=== PATIENT | female | born 1940 | race Caucasian/White ===

== ENCOUNTER → 2017-07-15 | Outpatient (CLI) | payer OTHER, MEDICARE ==
[~2017-07-15] MED LIST: ALBUTEROL2.5 MG/0.1 INH; ALEVE220 MG PO; AMBIEN 10 MG TA10 MG PO; APHEN325 MG PO; ATORVASTATIN CA20 MG PO; COUMADIN 4 MG TA4 M1 PO; COUMADIN 5 MG TA5 M1 PO; DILTIAZEM 24HR240 MG PO; DIOVAN HCT 1601 EACH PO; FLECAINIDE ACET50 M1 PO; FLECAINIDE ACET50 M2 PO; JANTOVEN7.5 MG PO; K-DUR 20 MEQ T20 MEQ PO; LASIX 40 MG TAB40 M2 PO; LEVAQUIN 500 M500 M2 PO; LEVOXYL50 MCG PO; LOPRESSOR100 MG PO; MEDROLDOSEPACK PO; MULTIVITAMINS1 EAC7 PO; NEXIUM40 MG PO; PACERONE 200 M200 M1 PO; PROTONIX40 M2; PROTONIX40 M2 PO; SOTALOL120 MG PO; TYLENOL325 MG PO; VITAMIN D-32000 UNIT PO; XARELTO20 MG PO
== END ==
LOC: RAD 03:43
DX: Z12.31 Encounter for screening mammogram for malignant neoplasm of breast (principal)

== ENCOUNTER → 2019-07-19 | Outpatient (CLI) | payer OTHER, MEDICARE | LOC: RAD 01:34 | DX: Z12.31 Encounter for screening mammogram for malignant neoplasm of breast (principal) ==

== ENCOUNTER 2019-08-27 13:29 | Inpatient (IN) | payer OTHER, MEDICARE ==
[~2019-08-27] VITALS: Ht 172.7 cm; Wt 120.7 kg
[2019-08-27 13:32] VITALS: BP 198/133
[2019-08-27 14:19] LABS: ABSOLUTE NEUTROPHILS 6.7 thou/uL (1.4-8.2); BASOPHILS 0.5 % (0.0-2.0); EOSINOPHILS 0.1 % (0.0-3.0); HEMATOCRIT 43.1 % (37.0-47.0); HEMOGLOBIN 14.1 gm/dL (12.0-15.0); MCH 29.9 pg (26.0-34.0); MCHC 32.6 g/dL (28.0-37.0); MCV 91.8 fL (80.0-100.0); MONOCYTES 6.2 % (1.0-8.0); PLATELET COUNT 175 thou/uL (150-400); POLYS 82.2 % (36.0-66.0); WBC 8.2 thou/uL (4.0-11.0)
[2019-08-27 14:30] LABS: ANION GAP 5 mmol/L (7-16); BUN 17 mg/dL (7-18); CALCIUM 8.9 mg/dL (8.5-10.1); CHLORIDE 102 mmol/L (98-107); CO2 30 mmol/L (21-32); GLUCOSE 166 mg/dL (74-106); PROTIME 21.3 Seconds (9.3-11.4); SODIUM 137 mmol/L (136-145)
[2019-08-27 14:40] LABS: ALBUMIN 2.5 g/dL (3.4-5.0); MAGNESIUM 1.8 mg/dL (1.8-2.4); SGOT 17 U/L (15-37); SGPT 17 U/L (30-65); TOTAL BILIRUBIN 1.5 mg/dL (<0.1-1.0); TOTAL PROTEIN 5.8 g/dL (6.4-8.2); TROPONIN-I <0.06 ng/mL (<0.06)
[2019-08-27] MEDS ORDERED: COUMADIN 2 MG TA2 M1 PO (14:58)
[2019-08-27] MEDS ORDERED: COUMADIN 4 MG TA4 M1 PO (14:59)
[2019-08-27] MEDS ORDERED: HYDROCHLOROTHIA25 M2 PO (15:00)
[2019-08-27] MEDS ORDERED: VITAMIN D2000 UNIT PO (15:01)
[2019-08-27 15:17] VITALS: BP 131/99
[2019-08-27 15:37] VITALS: BP 150/107
--- NOTE | 2019-08-27 18:14 | NUR ---
ASSUMMED PT CARE AT APPROXIMATELY 1600. PT A&O X4. ASSESSMENT CHARTED. FALL PRECAUTIONS IN PLACE. PT DENIES HAVING CHEST PAIN. PT STATES SHE HAS SOB ON EXERSION. PT DENIES HAVING ACUTE PAIN. ADMISSION COMPLETE. PT EDUCATED ON POC. PT STATED UNDERSTANDING AND DENIED HAVING FURTHER QUESTIONS. PT UP TO CHAIR THROUGHOUT SHIFT. PT COMFORTABLE IN CHAIR. PT DENIES HAVING FURTHER CONCERNS AT THIS MOMENT. VITAL SIGNS STABLE. BLOOD SUGARS STABLE.
[2019-08-27 19:46] VITALS: BP 140/75
[2019-08-27] MEDS ORDERED: ATENOLOL 100MG100 MG PO (21:01)
[2019-08-28 00:43] VITALS: BP 154/106
[2019-08-28 04:41] VITALS: BP 156/110
[2019-08-28 04:54] LABS: CREATININE 0.9 mg/dL (0.6-1.0); POTASSIUM 4.1 mmol/L (3.5-5.1)
[2019-08-28 05:36] LABS: CALCIUM 8.5 mg/dL (8.5-10.1)
[2019-08-28 05:41] LABS: HEMATOCRIT 42.3 % (37.0-47.0); HEMOGLOBIN 13.8 gm/dL (12.0-15.0); MCHC 32.6 g/dL (28.0-37.0); RBC 4.59 mil/uL (4.20-5.00); RDW 15.4 % (10.5-14.5); WBC 6.4 thou/uL (4.0-11.0)
[2019-08-28 07:56] VITALS: BP 151/102
--- NOTE | 2019-08-28 08:12 | NUR ---
ASSESSMENTS CHARTED, MEDS GIVEN CHARTED. PATIENT RESTING IN RECLINER DURING SHIFT. UP TO BATHROOM WITH MINIMAL ASSIST TO HELP WITH IV POLE. PATIENT USES TWO WALKING POLES TO HELP HER AMBULATE. CHEST XRAY SHOWS PNEUMONIA AND SMALL LEFT PE WITH CONSOLIDATION, LEFT LOWER LOBE OPACITIES. CHRONIC SORE THROAT. HOME MEDS WERE REVIEWED AGAIN AND PATIENT REQUESTED HER ATENOLOL, VIT. D, PROTONIX AND HCTZ BE RESTARTED. RECEIVED ORDERS FROM Percy JENKINS NP. FALL PRECAUTIONS IN PLACE. DENIES PAIN.
--- NOTE | 2019-08-28 11:40 | EKG ---
[address] [address] ELECTROCARDIOGRAM REPORT Name: SUZETTERUTH Cyndi Room #: 212-P ADM IN .R.#: [id number] Admission: 08/27/19 Attend Phys: Martinez Ghosh MD Discharge: Date of : 40 Report #: [id number] THIS REPORT FOR: //name// [facility] ED Test Date: 2019-08-27 Test Time: 13:43:58 Pat Name: RUTH BRADFORD Department: Room: [facility] Gender: F Smoke Tester: KELSEA : 1940 Requested By: Chet Cobian Order Number: [id number] MD: Gino Reyes Measurements Intervals [place] Rate: 120 P: [place]: QRS: 76 QRSD: 94 T: 30 QT: 335 QTc: 474 Interpretive Statements Atrial fibrillation Ventricular premature complex Compared to ECG 02/23/2014 09:24:36 Ventricular premature complex(es) now present Left ventricular hypertrophy no longer present Myocardial infarct finding no longer present Electronically Signed On 08-28-2019 11:40:02 CDT by Gino Reyes [email or web address] <ELECTRONICALLY SIGNED> By: Gino Reyes MD 08/28/19 1140 134 42 Gino Reyes MD /EPI
[2019-08-28 12:05] VITALS: BP 125/82
[2019-08-28 16:18] VITALS: BP 123/74
--- NOTE | 2019-08-28 18:01 | NUR ---
PATIENT DOES NOT SEEM TO BE IN PAIN OR DISTRESS AT THIS TIME. AMBULATES TO BATHROOM WITH MINIMAL DIFFICULTY. CONT ON STERIODS AND ABT. NO ADVERSE REACTIONS NOTED. WILL CONT WITH PLAN OF CARE.
[2019-08-28 21:04] VITALS: BP 138/88
[2019-08-29 05:01] LABS: HEMATOCRIT 41.1 % (37.0-47.0); MCH 29.5 pg (26.0-34.0); MCHC 31.7 g/dL (28.0-37.0); MCV 92.9 fL (80.0-100.0); RBC 4.42 mil/uL (4.20-5.00); RDW 15.6 % (10.5-14.5); WBC 10.4 thou/uL (4.0-11.0)
[2019-08-29 05:02] VITALS: BP 146/92
[2019-08-29 05:12] LABS: CALCIUM 8.9 mg/dL (8.5-10.1); CREATININE 1.1 mg/dL (0.6-1.0); POTASSIUM 4.4 mmol/L (3.5-5.1)
--- NOTE | 2019-08-29 06:34 | NUR ---
ASSESSMENTS CHARTED, MEDS GIVEN CHARTED. RUTH RESTED IN CHAIR DURING SHIFT. UP AT PRISCILLA TO BATHROOM. NOT COUGHING MUCH TONIGHT YESTERDAY. NOT SHORT OF BREATH BEFORE. CONTINUING STEROID TREATMENT AND BREATHING TREATMENTS.
--- NOTE | 2019-08-29 07:54 | HC ---
[facility] [place] [address] CONSULTATION Name: RUTH BRADFORD Room #: 212-P [facility] IN ..#: [id number] Admission: 08/27/19 Attend Phys: Martinez Ghosh MD Discharge: Date of : 40 Report #: [id number] THIS REPORT FOR: //name// CC: FAM unknown Martinez Ghosh DATE OF SERVICE: 08/27/2019 CARDIOLOGY CONSULT INDICATION: Shortness of breath. HISTORY OF PRESENT ILLNESS: This is a pleasant 79-year-old female with a history of permanent atrial fibrillation, hypertension, DVT/PE, presenting with several days of cough and dyspnea. She denies any episodes of chest pains, fever, nausea, PND or orthopnea. In the ER, she was noted to have abnormal chest x-ray suggestive for left lower lobe pneumonia. She follows with Dr. Kumar for chronic atrial fibrillation. PAST MEDICAL HISTORY: Atrial fibrillation, previously on antiarrhythmic therapy, unsuccessful. A strategy of rate control and anticoagulation therapy has been instituted. Prior history of DVT/PE. History of hypertension, hyperlipidemia, obesity, osteoarthritis. ALLERGIES: CODEINE. MEDICATIONS: At home include atenolol 100 mg daily, Lipitor 20 mg daily, Nexium daily, hydrochlorothiazide, levothyroxine, Diovan/HCT 160, and warfarin as directed. SOCIAL HISTORY: Denies tobacco use. FAMILY HISTORY: Negative for premature CAD. REVIEW OF SYSTEMS: A full 10-point review of systems performed. Only the pertinent positives and negatives are described in the HPI. PHYSICAL EXAMINATION: VITAL SIGNS: Blood pressure is 150/100, heart rate is 120 beats per minute. GENERAL APPEARANCE: An overweight female, in no acute distress. HEENT: Normocephalic, atraumatic. Oral mucosa moist. NECK: Supple. LUNGS: Crackles at the left lower base. CARDIAC: Tachycardic. S1, S2 positive. ABDOMEN: Protuberant, soft. EXTREMITIES: No cyanosis, trace edema. [facility] [address] [place] [address] CONSULTATION Name: RUTH BRADFORD Room #: 212-P [facility] IN [facility]#: [id number] Admission: 08/27/19 Attend Phys: Martinez Ghosh MD Discharge: Date of : 40 Report #: [id number] ECG reveals atrial fibrillation at a heart rate of 120 beats per minute. LABORATORY VALUES: White count is 8.2, hemoglobin 14.1, platelet count 175,000. INR is 2.0. Creatinine is 1.0. Troponin is negative. Chest x-ray reveals possible left lower lobe pneumonia. ASSESSMENT AND PLAN: 1. Atrial fibrillation with rapid rate, attributed to pneumonia. Continue with atenolol and warfarin. 2. Shortness of breath/cough, continue treatment with antibiotics. Check cultures. 3. Hypertension, continue with medications including atenolol and ARB medication. 4. Pulmonary embolism/deep venous thrombosis, continue warfarin. <ELECTRONICALLY SIGNED> By: Gino Reyes MD 08/29/19 0754 [id number] Gino Reyes MD /ino
[2019-08-29 08:00] VITALS: BP 144/98
--- NOTE | 2019-08-29 09:59 | NUR ---
ORDERS RECEIVED FOR EVAL AND TREAT. SPOKE WITH Pt WHO STATES SHE DOES NOT FEEL OFF BALANCE OR WEAK AND HAS BEEN GETTING UP ON HER OWN WITHOUT DIFFICULTY. Pt DECLINING FORMAL P.T. EVAL. ACCORDING TO NURSING NOTES Pt IS UP AD PRISCILLA.
--- NOTE | 2019-08-29 11:43 | NUR ---
ORDERS RECEIVED AND APPRECIATED. PATIENT REPORTED NO CONCERNS RELATED TO ADLS OR FUNCTIONAL MOBILITY/TRANSFERS FOR SAFE RETURN HOME. PATIENT REPORTED SHE HAS EQUIPMENT IN PLACE AT HOME THAT ALLOWS FOR INDEPENDENCE WITH BATHING. PATIENT POLITELY REFUSED FORMAL OT EVALUATION. OT ENCOURAGED PATIENT TO CONTINUE TO COMPLETE SELF-CARE TASKS DURING ACUTE STAY. PER RN, PATIENT IS UP AD PRISCILLA. OT SERVICES WILL BE DISCONTINUED AT THIS TIME. PLEASE RE-CONSULT IF PATIENT HAS A DECLINE IN FUNCTIONAL STATUS.
--- NOTE | 2019-08-29 14:06 | NUR ---
ASSUMED CARE AT 0700, SHIFT ASSEESSMENT DONE, MEDS GIVEN, VSS. DENIES ANY NAUSEA, VOMITING, PAIN. ON 2L NC, PER DR BOWLING TRYING TO WEAN PT OFF OF O2. RECEIVED ONE TIME ORDER OF LASIX. DECLINED PHYSICAL THERAPHY, WORKED WITH OCCUPATIONAL THERAPHY. WILL CONTINUE TO ASSESS AND ASSIST WITH ADLs NEEDED.
[2019-08-29 16:51] VITALS: BP 137/89
[2019-08-29 20:07] VITALS: BP 118/65
[2019-08-30 04:04] VITALS: BP 150/85
--- NOTE | 2019-08-30 04:14 | NUR ---
ASSESSMENTS CHARTED, MEDS GIVEN CHARTED. PATIENT RESTING EASY IN RECLINER DURING SHIFT. UP AT PRISCILLA TO THE BATHROOM. HAS MAINTAINED HER OXYGEN LEVEL WITHOUT SUPPLEMENTAL OXYGEN DURING SHIFT. COUGH IS BECOMING PRODUCTIVE. RECEIVED LASIX THERAPY DURING DAY. STILL ON STEROID THERAPY FOR LUNGS. DENIES PAIN. PATIENT HOPES TO GO HOME IN THE MORNING.
--- NOTE | 2019-08-30 05:50 | NUR ---
PATIENTS RESPIRATORY RATE RAISED ABOVE 24 BPM SO A DOSE OF MORPHINE WAS GIVEN FOR AIR HUNGER.
[2019-08-30 06:04] LABS: HEMATOCRIT 39.1 % (37.0-47.0); HEMOGLOBIN 12.7 gm/dL (12.0-15.0); MCHC 32.5 g/dL (28.0-37.0); MCV 92.2 fL (80.0-100.0); RBC 4.24 mil/uL (4.20-5.00); RDW 15.3 % (10.5-14.5); WBC 9.4 thou/uL (4.0-11.0)
[2019-08-30 06:13] LABS: INR 2.9; PROTIME 30.2 Seconds (9.3-11.4)
[2019-08-30 06:22] LABS: CALCIUM 8.6 mg/dL (8.5-10.1); CREATININE 1.1 mg/dL (0.6-1.0); POTASSIUM 3.8 mmol/L (3.5-5.1)
[2019-08-30 08:35] VITALS: BP 151/86
[2019-08-30 12:25] VITALS: BP 121/78
[2019-08-30 16:00] VITALS: BP 141/99
--- NOTE | 2019-08-30 17:22 | NUR ---
Met with patient who resides at home with spouse. He does not drive. patient retired teacher. She reports independent with adls. She reports will have no needs at vt. SHe states her car is in our parking lot and she is driving home at vt. PCP Dr Thurston. no needs noted.
--- NOTE | 2019-08-30 19:57 | NUR ---
ASSUMED CARE AT SHIFT CHANGE, ASSESMENT CHARTED, AFEBRILE, AND BP SLIGHTLY ELEVATED. MEDS GIVEN DOCUMENTED. PROGRESSING TOWARD GOALS AND WILL CONTINUE WITH POC.
[2019-08-30 20:48] VITALS: BP 97/77
--- NOTE | 2019-08-31 02:48 | NUR ---
ASSESSMENTS CHARTED, MEDS GIVEN CHARTED. PT UP AT PRISCILLA IN ROOM. ON CHRONIC AFIB. ON ROOM AIR. PLAN OF CARE TO CONTINUE ANTIBIOTICS, STEROIDS, RT, AND DIURESING. PATIENT MANY BE ABLE TO GO HOME TODAY. FALL PRECAUTIONS IN PLACE. DENIED PAIN.
[2019-08-31 04:55] VITALS: BP 131/80
[2019-08-31 05:19] LABS: HEMATOCRIT 39.4 % (37.0-47.0); HEMOGLOBIN 12.6 gm/dL (12.0-15.0); MCH 29.5 pg (26.0-34.0); MCV 92.1 fL (80.0-100.0); RBC 4.27 mil/uL (4.20-5.00); RDW 14.9 % (10.5-14.5); WBC 6.9 thou/uL (4.0-11.0)
[2019-08-31 05:26] LABS: INR 2.9
[2019-08-31 05:33] LABS: CALCIUM 8.4 mg/dL (8.5-10.1); CREATININE 1.2 mg/dL (0.6-1.0)
[2019-08-31 07:41] VITALS: BP 150/92
[2019-08-31] MEDS ORDERED: CEFDINIR300 MG PO (09:17)
[2019-08-31] MEDS ORDERED: PREDNISONE 10 M10 M1 PO (09:19)
[2019-08-31 10:40] VITALS: BP 150/92
[2019-08-31 11:57] VITALS: BP 142/80
[2019-08-31 12:24] VITALS: BP 150/92
[2019-08-31 14:35] VITALS: BP 150/92
== END 2019-08-31 13:30 | disposition home or self-care (01) | DRG 193 ==
LOC: ER 13:29 → EROBS 15:03 → 2N 15:03 → ENTRNSPT 08-31 12:51 → EDTRNSPTSTS 08-31 12:54 → 2N 08-31 13:30
PROVIDERS: Emergency Medicine; Internal Medicine; ADMIT Hospitalist
DX: J18.9 Pneumonia, unspecified organism (principal); J96.01 Acute respiratory failure with hypoxia; J44.1 Chronic obstructive pulmonary disease with (acute) exacerbation; Z68.41 Body mass index [BMI] 40.0-44.9, adult; J44.0 Chronic obstructive pulmonary disease with (acute) lower respiratory infection; D68.59 Other primary thrombophilia; E46 Unspecified protein-calorie malnutrition; I50.32 Chronic diastolic (congestive) heart failure; T38.0X5A Adverse effect of glucocorticoids and synthetic analogues, initial encounter; I11.0 Hypertensive heart disease with heart failure; I48.91 Unspecified atrial fibrillation; E03.9 Hypothyroidism, unspecified; E66.9 Obesity, unspecified; K21.9 Gastro-esophageal reflux disease without esophagitis; M17.0 Bilateral primary osteoarthritis of knee; E78.5 Hyperlipidemia, unspecified; Z90.49 Acquired absence of other specified parts of digestive tract; Z90.710 Acquired absence of both cervix and uterus; Z86.718 Personal history of other venous thrombosis and embolism; Z98.41 Cataract extraction status, right eye; Z98.42 Cataract extraction status, left eye; Z88.0 Allergy status to penicillin; Z79.01 Long term (current) use of anticoagulants; Y92.89 Other specified places as the place of occurrence of the external cause
CPT/HCPCS: 10081

== ENCOUNTER → 2019-11-29 | Outpatient (CLI) | payer OTHER, MEDICARE ==
[~2019-11-29] MED LIST changes: +ATENOLOL 100MG100 MG PO; +CEFDINIR300 MG PO; +COUMADIN 2 MG TA2 M1 PO; +HYDROCHLOROTHIA25 M2 PO; +PREDNISONE 10 M10 M1 PO; +VITAMIN D2000 UNIT PO
== END ==
LOC: SJCVC 11:00
DX: Z51.81 Encounter for therapeutic drug level monitoring (principal); I48.0 Paroxysmal atrial fibrillation; E78.5 Hyperlipidemia, unspecified; I10 Essential (primary) hypertension; Z79.01 Long term (current) use of anticoagulants

== ENCOUNTER → 2019-12-28 | Outpatient (CLI) | payer OTHER, MEDICARE | LOC: SJCVC 15:12 | DX: Z51.81 Encounter for therapeutic drug level monitoring (principal); I48.0 Paroxysmal atrial fibrillation; E78.5 Hyperlipidemia, unspecified; Z79.01 Long term (current) use of anticoagulants ==

== ENCOUNTER → 2020-01-16 | Outpatient (CLI) | payer OTHER, MEDICARE | LOC: RAD 13:34 | DX: J90 Pleural effusion, not elsewhere classified (principal); J98.11 Atelectasis ==

== ENCOUNTER → 2020-01-25 | Outpatient (CLI) | payer OTHER, MEDICARE | LOC: SJCVC 11:10 | DX: Z51.81 Encounter for therapeutic drug level monitoring (principal); I48.0 Paroxysmal atrial fibrillation; I10 Essential (primary) hypertension; Z86.711 Personal history of pulmonary embolism; E78.5 Hyperlipidemia, unspecified; Z79.01 Long term (current) use of anticoagulants ==

== ENCOUNTER → 2020-01-31 | Outpatient (CLI) | payer OTHER, MEDICARE ==
[~2020-01-31] MED LIST changes: +KEFLEX500 M1 PO
== END ==
LOC: SJCVC 13:12
PROVIDERS: ATTEND Internal Medicine
DX: R94.31 Abnormal electrocardiogram [ECG] [EKG] (principal); I48.21 Permanent atrial fibrillation; I10 Essential (primary) hypertension; E78.5 Hyperlipidemia, unspecified; J90 Pleural effusion, not elsewhere classified; Z79.01 Long term (current) use of anticoagulants

== ENCOUNTER → 2020-02-22 | Outpatient (CLI) | payer OTHER, MEDICARE ==
[~2020-02-22] MED LIST changes: -KEFLEX500 M1 PO
== END ==
LOC: SJCVC 13:21
DX: Z51.81 Encounter for therapeutic drug level monitoring (principal); I48.0 Paroxysmal atrial fibrillation; I10 Essential (primary) hypertension; E78.5 Hyperlipidemia, unspecified; Z86.711 Personal history of pulmonary embolism

== ENCOUNTER → 2020-03-21 | Outpatient (CLI) | payer OTHER, MEDICARE | LOC: SJCVC 14:06 | DX: Z51.81 Encounter for therapeutic drug level monitoring (principal); I48.0 Paroxysmal atrial fibrillation; J45.909 Unspecified asthma, uncomplicated; I10 Essential (primary) hypertension; E78.5 Hyperlipidemia, unspecified; Z86.711 Personal history of pulmonary embolism; Z79.01 Long term (current) use of anticoagulants ==

== ENCOUNTER → 2020-04-18 | Outpatient (CLI) | payer OTHER, MEDICARE | LOC: SJCVC 13:02 | DX: Z51.81 Encounter for therapeutic drug level monitoring (principal); Z79.01 Long term (current) use of anticoagulants ==

== ENCOUNTER → 2020-05-21 | Outpatient (CLI) | payer OTHER, MEDICARE ==
[~2020-05-21] MED LIST changes: +KEFLEX500 M1 PO
== END ==
LOC: SJCVC 08:42
PROVIDERS: ATTEND Internal Medicine
DX: Z51.81 Encounter for therapeutic drug level monitoring (principal); Z79.01 Long term (current) use of anticoagulants

== ENCOUNTER 2020-05-23 19:00 | Emergency (ER) | payer OTHER, MEDICARE ==
[~2020-05-23] VITALS: Ht 170.2 cm; Wt 113.0 kg
--- NOTE | ~2020-05-23 | EMS ---
[address] [address] EMS Patient Care Report Name: RUTH BRADFORD Room #: REG [facility] [place]#: [id number] Admission: 05/23/20 Attend Phys: Discharge: Date of : 40 Report #: [id number] THIS REPORT FOR: //name// Report Transmitted: 05/23/2020 19:45 EMS Care Summary [facility] MED-ACT Incident [phone] @ 05/23/2020 18:24 Incident Location [address] [place] [address] Patient RUTH BRADFORD Female, 79 Years 1940 Patient Address [address] [place] [address] Patient History Arthritis,Atrial Fibrillation, Patient Allergies Codeine, Patient Medications Warfarin, Chief Complaint Lceration on L foot Disposition Transported No Lights/[place] Dis[place] Reason Hemorrhage/Laceration Transported To [facility] Narrative Upon arrival pt was sitting on the step of her truck, presented w/o distress, in S44 care. S44 reported that pt had 4 inches of laceration to her L foot and bleeding was controlled by direct pressure and bandaging. Pt stated she [address] [address] EMS Patient Care Report Name: RUTH BRADFORD Room #: REG [facility] [place]#: [id number] Admission: 05/23/20 Attend Phys: Discharge: Date of : 40 Report #: [id number] tried to get into her truck and her L foot hit the step. Pt denied fall. Pt stated she could not have her foot high enough to clam into the truck. Pt denied any head, neck back pain. Pt denied any chest pain or difficulty of breathing. Pt was on blood thinners for A/fib. Pt stood and sat on the stretcher and then pt was moved into the unit. In the unit, pt vitals were monitored and remained stable during transport. Initial Vitals @18:35P: 80,R: 18,BP: 108/67,Pain: 0/10,GCS: 15,SpO2: 99,Revised Trauma: 12, Assessments @18:46MENTAL:No Abnormalities,SKIN:No Abnormalities,HEENT:Head/Face: No Abnormalities,Eyes: No Abnormalities,Neck/Airway: No Abnormalities,LUNG SOUNDS:General: No Abnormalities,Left Upper: No Abnormalities,Right Upper: No Abnormalities,Left Lower: No Abnormalities,Right Lower: No Abnormalities,ABDOMEN:General: No Abnormalities,Left Upper: No Abnormalities,Right Upper: No Abnormalities,Left Lower: No Abnormalities,Right Lower: No Abnormalities,PELVIS//GI:No Abnormalities,EXTREMITIES:Left Leg: LAC,PULSE:NEURO:No Abnormalities, Impression Laceration/Abrasion/Hematoma (minor surface trauma) Procedures @PTABandagingResponse: ImprovedSucceeded Timeline PHARMACEUTICAL OPERATOR,Bandaging,Response: ImprovedSucceeded, 18:21,Call Received 18:21,Psap Call 18:24,Dispatched 18:25,En Route 18:33,On Scene 18:34,At Patient 18:35,BP: 108/67 M,PULSE: 80,RR: 18 R,SPO2: 99 Ox,ETCO2: ,BG: ,PAIN: 0,GCS: 15, 18:43,Depart Scene 18:57,At Destination 19:10,Call Closed Disclaimer v1.1 Copyright 2020 [employer] This EMS Care Summary contains data elements from the applicable legal record (which may be displayed differently). It is designed to provide pertinent information for the following purposes: continuity of care, clinical quality, and state data reporting. The complete legal record is available to ED staff and administrators of the receiving hospital in [employer] Patient Tracker. All data [facility] [address] [place] [address] EMS Patient Care Report Name: RUTH BRADFORD [id number] Admission: 05/23/20 Attend Phys: Discharge: Date of : 40 Report #: [id number] is provided "as is."
[~2020-05-23 19:00] MED LIST changes: -KEFLEX500 M1 PO
[2020-05-23 19:44] LABS: ABSOLUTE NEUTROPHILS 4.6 thou/uL (1.4-8.2); BASOPHILS 1.4 % (0.0-2.0); EOSINOPHILS 1.2 % (0.0-3.0); HEMATOCRIT 42.1 % (37.0-47.0); HEMOGLOBIN 13.7 gm/dL (12.0-15.0); LYMPHOCYTES 26.4 % (24.0-44.0); MCH 30.8 pg (26.0-34.0); MCHC 32.6 g/dL (28.0-37.0); MCV 94.3 fL (80.0-100.0); MONOCYTES 5.3 % (1.0-8.0); PLATELET COUNT 197 thou/uL (150-400); POLYS 65.7 % (36.0-66.0); RBC 4.46 mil/uL (4.20-5.00); WBC 6.9 thou/uL (4.0-11.0)
[2020-05-23 19:54] LABS: CALCIUM 8.9 mg/dL (8.5-10.1); CREATININE 1.8 mg/dL (0.6-1.0); POTASSIUM 3.4 mmol/L (3.5-5.1)
[2020-05-23 19:58] LABS: INR 2.2; PROTIME 22.8 Seconds (9.3-11.4)
[2020-05-23] MEDS ORDERED: KEFLEX500 M1 PO (20:57)
[2020-05-23 21:40] VITALS: BP 93/72
== END 2020-05-23 21:39 | disposition home or self-care (01) ==
LOC: ER 19:00
PROVIDERS: Nurse Practitioner Family
DX: S81.822A Laceration with foreign body, left lower leg, initial encounter (principal); I10 Essential (primary) hypertension; E78.5 Hyperlipidemia, unspecified; K21.9 Gastro-esophageal reflux disease without esophagitis; J44.9 Chronic obstructive pulmonary disease, unspecified; I48.91 Unspecified atrial fibrillation; Z90.710 Acquired absence of both cervix and uterus; Z79.899 Other long term (current) drug therapy; Z79.01 Long term (current) use of anticoagulants; Z88.5 Allergy status to narcotic agent

== ENCOUNTER → 2020-06-14 | Outpatient (CLI) | payer OTHER, MEDICARE ==
[~2020-06-14] MED LIST changes: +KEFLEX500 M1 PO
== END ==
LOC: SJCVC 13:28
PROVIDERS: ATTEND Internal Medicine
DX: Z51.81 Encounter for therapeutic drug level monitoring (principal); I48.0 Paroxysmal atrial fibrillation; I10 Essential (primary) hypertension; E78.5 Hyperlipidemia, unspecified; Z79.01 Long term (current) use of anticoagulants

== ENCOUNTER → 2020-07-11 | Outpatient (CLI) | payer OTHER, MEDICARE | LOC: SJCVC 13:56 | PROVIDERS: ATTEND Internal Medicine | DX: Z51.81 Encounter for therapeutic drug level monitoring (principal); I48.0 Paroxysmal atrial fibrillation; I10 Essential (primary) hypertension; E78.5 Hyperlipidemia, unspecified; Z79.01 Long term (current) use of anticoagulants; Z79.899 Other long term (current) drug therapy ==

== ENCOUNTER → 2020-07-26 | Outpatient (CLI) | payer OTHER, MEDICARE | LOC: RAD 08:17 | PROVIDERS: ATTEND Internal Medicine | DX: Z12.31 Encounter for screening mammogram for malignant neoplasm of breast (principal) ==

== ENCOUNTER → 2020-08-16 | Outpatient (CLI) | payer OTHER, MEDICARE | LOC: SJCVC 13:28 | PROVIDERS: ATTEND Internal Medicine | DX: I48.21 Permanent atrial fibrillation (principal); R94.31 Abnormal electrocardiogram [ECG] [EKG]; I11.0 Hypertensive heart disease with heart failure; I50.32 Chronic diastolic (congestive) heart failure; E78.5 Hyperlipidemia, unspecified; M19.90 Unspecified osteoarthritis, unspecified site; E03.9 Hypothyroidism, unspecified; E66.9 Obesity, unspecified; Z79.01 Long term (current) use of anticoagulants; Z86.718 Personal history of other venous thrombosis and embolism; Z79.899 Other long term (current) drug therapy; Z82.49 Family history of ischemic heart disease and other diseases of the circulatory system ==

== ENCOUNTER → 2020-08-22 | Outpatient (CLI) | payer OTHER, MEDICARE | LOC: SJCVC 14:11 | PROVIDERS: ATTEND Internal Medicine | DX: Z51.81 Encounter for therapeutic drug level monitoring (principal); I48.0 Paroxysmal atrial fibrillation; I10 Essential (primary) hypertension; E78.5 Hyperlipidemia, unspecified; Z79.01 Long term (current) use of anticoagulants; Z79.899 Other long term (current) drug therapy ==

== ENCOUNTER → 2020-08-29 | Outpatient (CLI) | payer OTHER, MEDICARE | LOC: SJCVC 13:17 | PROVIDERS: ATTEND Internal Medicine | DX: Z51.81 Encounter for therapeutic drug level monitoring (principal); Z79.01 Long term (current) use of anticoagulants ==

== ENCOUNTER → 2020-09-10 | Outpatient (CLI) | payer OTHER, MEDICARE | LOC: SJCVC 09:51 | PROVIDERS: ATTEND Internal Medicine | DX: Z51.81 Encounter for therapeutic drug level monitoring (principal); Z79.01 Long term (current) use of anticoagulants ==

== ENCOUNTER → 2020-10-09 | Outpatient (CLI) | payer OTHER, MEDICARE | LOC: SJCVC 13:00 | PROVIDERS: ATTEND Internal Medicine | DX: Z51.81 Encounter for therapeutic drug level monitoring (principal); Z79.01 Long term (current) use of anticoagulants ==

== ENCOUNTER → 2020-11-06 | Outpatient (CLI) | payer OTHER, MEDICARE | LOC: SJCVC 13:01 | PROVIDERS: ATTEND Internal Medicine | DX: Z51.81 Encounter for therapeutic drug level monitoring (principal); I48.0 Paroxysmal atrial fibrillation; I10 Essential (primary) hypertension; E78.5 Hyperlipidemia, unspecified; Z79.01 Long term (current) use of anticoagulants ==

== ENCOUNTER → 2020-12-03 | Outpatient (CLI) | payer OTHER, MEDICARE | LOC: SJCVC 13:44 | PROVIDERS: ATTEND Internal Medicine | DX: Z51.81 Encounter for therapeutic drug level monitoring (principal); Z79.01 Long term (current) use of anticoagulants; Z79.899 Other long term (current) drug therapy ==

== ENCOUNTER → 2021-01-04 | Outpatient (CLI) | payer OTHER, MEDICARE | LOC: SJCVC 14:11 | PROVIDERS: ATTEND Internal Medicine | DX: Z51.81 Encounter for therapeutic drug level monitoring (principal); Z79.01 Long term (current) use of anticoagulants; Z79.1 Long term (current) use of non-steroidal anti-inflammatories (NSAID); Z79.899 Other long term (current) drug therapy; Z88.5 Allergy status to narcotic agent; Z90.710 Acquired absence of both cervix and uterus; Z90.49 Acquired absence of other specified parts of digestive tract; Z72.89 Other problems related to lifestyle ==

== ENCOUNTER → 2021-02-04 | Outpatient (CLI) | payer OTHER, MEDICARE | LOC: SJCVC 13:30 | PROVIDERS: ATTEND Internal Medicine | DX: Z51.81 Encounter for therapeutic drug level monitoring (principal); I48.0 Paroxysmal atrial fibrillation; I10 Essential (primary) hypertension; E78.5 Hyperlipidemia, unspecified; Z79.01 Long term (current) use of anticoagulants; Z86.718 Personal history of other venous thrombosis and embolism; Z86.711 Personal history of pulmonary embolism ==

== ENCOUNTER → 2021-02-20 | Outpatient (CLI) | payer OTHER, MEDICARE | LOC: SJCVC 13:22 | PROVIDERS: ATTEND Internal Medicine | DX: R94.31 Abnormal electrocardiogram [ECG] [EKG] (principal); I48.21 Permanent atrial fibrillation; I11.0 Hypertensive heart disease with heart failure; I50.32 Chronic diastolic (congestive) heart failure; E78.5 Hyperlipidemia, unspecified; E03.9 Hypothyroidism, unspecified; E66.9 Obesity, unspecified; M19.90 Unspecified osteoarthritis, unspecified site; Z90.49 Acquired absence of other specified parts of digestive tract; Z90.710 Acquired absence of both cervix and uterus; Z98.890 Other specified postprocedural states; Z88.8 Allergy status to other drugs, medicaments and biological substances; Z79.01 Long term (current) use of anticoagulants; Z79.899 Other long term (current) drug therapy; Z86.711 Personal history of pulmonary embolism; Z86.718 Personal history of other venous thrombosis and embolism; Z82.49 Family history of ischemic heart disease and other diseases of the circulatory system ==

== ENCOUNTER → 2021-03-07 | Outpatient (CLI) | payer OTHER, MEDICARE | LOC: SJCVC 13:22 | PROVIDERS: ATTEND Internal Medicine | DX: Z51.81 Encounter for therapeutic drug level monitoring (principal); I48.0 Paroxysmal atrial fibrillation; I10 Essential (primary) hypertension; E78.5 Hyperlipidemia, unspecified; Z79.01 Long term (current) use of anticoagulants; Z79.899 Other long term (current) drug therapy; Z86.718 Personal history of other venous thrombosis and embolism ==

== ENCOUNTER → 2021-04-04 | Outpatient (CLI) | payer OTHER, MEDICARE | LOC: SJCVC 13:15 | PROVIDERS: ATTEND Internal Medicine | DX: Z51.81 Encounter for therapeutic drug level monitoring (principal); I48.0 Paroxysmal atrial fibrillation; I11.0 Hypertensive heart disease with heart failure; I26.99 Other pulmonary embolism without acute cor pulmonale; I50.32 Chronic diastolic (congestive) heart failure; E78.5 Hyperlipidemia, unspecified; Z79.01 Long term (current) use of anticoagulants ==

== ENCOUNTER → 2021-05-02 | Outpatient (CLI) | payer OTHER, MEDICARE | LOC: SJCVC 12:51 | PROVIDERS: ATTEND Internal Medicine | DX: Z51.81 Encounter for therapeutic drug level monitoring (principal); E78.5 Hyperlipidemia, unspecified; I10 Essential (primary) hypertension; E03.9 Hypothyroidism, unspecified; E66.9 Obesity, unspecified; M19.90 Unspecified osteoarthritis, unspecified site; I48.0 Paroxysmal atrial fibrillation; Z79.01 Long term (current) use of anticoagulants; Z79.899 Other long term (current) drug therapy; Z72.89 Other problems related to lifestyle; Z88.5 Allergy status to narcotic agent; Z88.6 Allergy status to analgesic agent; Z86.718 Personal history of other venous thrombosis and embolism ==

== ENCOUNTER → 2021-05-30 | Outpatient (CLI) | payer OTHER, MEDICARE | LOC: SJCVC 12:47 | PROVIDERS: ATTEND Internal Medicine | DX: Z51.81 Encounter for therapeutic drug level monitoring (principal); I11.0 Hypertensive heart disease with heart failure; I50.32 Chronic diastolic (congestive) heart failure; I48.21 Permanent atrial fibrillation; E78.5 Hyperlipidemia, unspecified; Z88.8 Allergy status to other drugs, medicaments and biological substances; E03.9 Hypothyroidism, unspecified; E66.9 Obesity, unspecified; Z79.01 Long term (current) use of anticoagulants; Z79.899 Other long term (current) drug therapy; Z88.5 Allergy status to narcotic agent; Z72.89 Other problems related to lifestyle ==

== ENCOUNTER → 2021-06-06 | Outpatient (CLI) | payer OTHER, MEDICARE | LOC: SJCVC 13:11 | PROVIDERS: ATTEND Internal Medicine | DX: Z51.81 Encounter for therapeutic drug level monitoring (principal); I10 Essential (primary) hypertension; E03.9 Hypothyroidism, unspecified; E78.5 Hyperlipidemia, unspecified; Z79.01 Long term (current) use of anticoagulants; Z79.899 Other long term (current) drug therapy; Z88.5 Allergy status to narcotic agent; Z88.8 Allergy status to other drugs, medicaments and biological substances; Z86.718 Personal history of other venous thrombosis and embolism ==

== ENCOUNTER → 2021-06-13 | Outpatient (CLI) | payer OTHER, MEDICARE | LOC: SJCVC 13:16 | PROVIDERS: ATTEND Internal Medicine | DX: Z51.81 Encounter for therapeutic drug level monitoring (principal); I48.0 Paroxysmal atrial fibrillation; I10 Essential (primary) hypertension; E78.5 Hyperlipidemia, unspecified; Z79.01 Long term (current) use of anticoagulants; Z79.899 Other long term (current) drug therapy; Z86.711 Personal history of pulmonary embolism ==

== ENCOUNTER → 2021-06-20 | Outpatient (CLI) | payer OTHER, MEDICARE | LOC: SJCVC 11:45 | PROVIDERS: ATTEND Internal Medicine | DX: Z51.81 Encounter for therapeutic drug level monitoring (principal); I48.0 Paroxysmal atrial fibrillation; I11.0 Hypertensive heart disease with heart failure; I50.32 Chronic diastolic (congestive) heart failure; E78.5 Hyperlipidemia, unspecified; Z79.01 Long term (current) use of anticoagulants ==

== ENCOUNTER → 2021-06-24 | Outpatient (CLI) | payer OTHER, MEDICARE | LOC: SJCVC 11:43 | PROVIDERS: ATTEND Internal Medicine | DX: Z51.81 Encounter for therapeutic drug level monitoring (principal); I48.0 Paroxysmal atrial fibrillation; I11.0 Hypertensive heart disease with heart failure; I50.32 Chronic diastolic (congestive) heart failure; E78.5 Hyperlipidemia, unspecified; Z79.01 Long term (current) use of anticoagulants; Z79.899 Other long term (current) drug therapy; Z86.711 Personal history of pulmonary embolism ==

== ENCOUNTER → 2021-07-01 | Outpatient (CLI) | payer OTHER, MEDICARE | LOC: SJCVC 13:20 | PROVIDERS: ATTEND Internal Medicine | DX: Z51.81 Encounter for therapeutic drug level monitoring (principal); I48.91 Unspecified atrial fibrillation; I82.409 Acute embolism and thrombosis of unspecified deep veins of unspecified lower extremity; I48.0 Paroxysmal atrial fibrillation; I11.0 Hypertensive heart disease with heart failure; I50.32 Chronic diastolic (congestive) heart failure; E78.5 Hyperlipidemia, unspecified; Z79.01 Long term (current) use of anticoagulants ==

== ENCOUNTER → 2021-07-11 | Outpatient (CLI) | payer OTHER, MEDICARE | LOC: SJCVC 13:09 | PROVIDERS: ATTEND Internal Medicine | DX: Z51.81 Encounter for therapeutic drug level monitoring (principal); E78.5 Hyperlipidemia, unspecified; I10 Essential (primary) hypertension; Z79.01 Long term (current) use of anticoagulants; Z79.899 Other long term (current) drug therapy; Z88.5 Allergy status to narcotic agent; Z88.8 Allergy status to other drugs, medicaments and biological substances; E03.9 Hypothyroidism, unspecified; Z72.89 Other problems related to lifestyle ==

== ENCOUNTER → 2021-07-25 | Outpatient (CLI) | payer OTHER, MEDICARE | LOC: SJCVC 13:25 | PROVIDERS: ATTEND Internal Medicine | DX: Z51.81 Encounter for therapeutic drug level monitoring (principal); I48.0 Paroxysmal atrial fibrillation; I11.0 Hypertensive heart disease with heart failure; I50.32 Chronic diastolic (congestive) heart failure; Z79.01 Long term (current) use of anticoagulants ==

== ENCOUNTER → 2021-08-22 | Outpatient (CLI) | payer OTHER, MEDICARE | LOC: SJCVC 13:14 | PROVIDERS: ATTEND Internal Medicine | DX: Z51.81 Encounter for therapeutic drug level monitoring (principal); I48.0 Paroxysmal atrial fibrillation; I10 Essential (primary) hypertension; Z79.01 Long term (current) use of anticoagulants ==

== ENCOUNTER → 2021-09-05 | Outpatient (CLI) | payer OTHER, MEDICARE | LOC: SJCVC 13:24 | PROVIDERS: ATTEND Internal Medicine | DX: Z51.81 Encounter for therapeutic drug level monitoring (principal); E78.5 Hyperlipidemia, unspecified; I50.32 Chronic diastolic (congestive) heart failure; I11.0 Hypertensive heart disease with heart failure; Z79.01 Long term (current) use of anticoagulants; Z79.899 Other long term (current) drug therapy; Z88.5 Allergy status to narcotic agent; Z88.8 Allergy status to other drugs, medicaments and biological substances ==

== ENCOUNTER → 2021-09-12 | Outpatient (CLI) | payer OTHER, MEDICARE | LOC: SJCVC 13:22 | PROVIDERS: ATTEND Internal Medicine | DX: Z51.81 Encounter for therapeutic drug level monitoring (principal); I50.32 Chronic diastolic (congestive) heart failure; I11.0 Hypertensive heart disease with heart failure; E78.5 Hyperlipidemia, unspecified; Z79.01 Long term (current) use of anticoagulants; Z79.899 Other long term (current) drug therapy ==

== ENCOUNTER → 2021-09-13 | Outpatient (CLI) | payer OTHER, MEDICARE | LOC: BC 10:22 | PROVIDERS: ATTEND Internal Medicine | DX: Z12.31 Encounter for screening mammogram for malignant neoplasm of breast (principal) ==

== ENCOUNTER → 2021-09-19 | Outpatient (CLI) | payer OTHER, MEDICARE | END | disposition home or self-care (01) | LOC: RAD 14:11 | PROVIDERS: ATTEND Internal Medicine | DX: R92.2 Inconclusive mammogram (principal) ==

== ENCOUNTER → 2021-10-01 | Outpatient (CLI) | payer OTHER, MEDICARE | LOC: CAT 13:47 | PROVIDERS: ATTEND Internal Medicine | DX: I51.7 Cardiomegaly (principal); N63.0 Unspecified lump in unspecified breast; N64.89 Other specified disorders of breast; J98.11 Atelectasis; J90 Pleural effusion, not elsewhere classified ==

== ENCOUNTER → 2021-10-08 | Outpatient (CLI) | payer OTHER, MEDICARE | END | disposition home or self-care (01) | LOC: SJCVC 14:05 | PROVIDERS: ATTEND Internal Medicine | DX: Z51.81 Encounter for therapeutic drug level monitoring (principal); Z79.01 Long term (current) use of anticoagulants ==

== ENCOUNTER → 2021-10-17 | Outpatient (CLI) | payer OTHER, MEDICARE | LOC: SJCVCIMAG 08:25 | PROVIDERS: ATTEND Internal Medicine | DX: I08.3 Combined rheumatic disorders of mitral, aortic and tricuspid valves (principal); I11.9 Hypertensive heart disease without heart failure; I77.810 Thoracic aortic ectasia; I48.91 Unspecified atrial fibrillation ==

== ENCOUNTER → 2021-11-07 | Outpatient (CLI) | payer OTHER, MEDICARE | LOC: RAD 15:12 | PROVIDERS: ATTEND Internal Medicine | DX: I51.7 Cardiomegaly (principal); R06.00 Dyspnea, unspecified; J90 Pleural effusion, not elsewhere classified; J98.11 Atelectasis ==

== ENCOUNTER → 2021-11-11 | Outpatient (CLI) | payer OTHER, MEDICARE | LOC: SJCVC 14:03 | PROVIDERS: ATTEND Internal Medicine | DX: Z51.81 Encounter for therapeutic drug level monitoring (principal); Z79.01 Long term (current) use of anticoagulants ==

== ENCOUNTER → 2021-11-28 | Outpatient (CLI) | payer OTHER, MEDICARE | LOC: SJCVC 14:11 | PROVIDERS: ATTEND Internal Medicine | DX: Z51.81 Encounter for therapeutic drug level monitoring (principal); Z79.01 Long term (current) use of anticoagulants; I11.0 Hypertensive heart disease with heart failure; I50.32 Chronic diastolic (congestive) heart failure; I48.21 Permanent atrial fibrillation; E78.5 Hyperlipidemia, unspecified; Z79.899 Other long term (current) drug therapy; Z88.5 Allergy status to narcotic agent; Z88.8 Allergy status to other drugs, medicaments and biological substances; Z90.49 Acquired absence of other specified parts of digestive tract; Z90.710 Acquired absence of both cervix and uterus; Z98.890 Other specified postprocedural states ==

== ENCOUNTER → 2021-12-06 | Outpatient (CLI) | payer OTHER, MEDICARE | LOC: SJCVC 14:30 | PROVIDERS: ATTEND Internal Medicine | DX: Z51.81 Encounter for therapeutic drug level monitoring (principal); Z79.01 Long term (current) use of anticoagulants ==

== ENCOUNTER → 2021-12-24 | Outpatient (CLI) | payer OTHER, MEDICARE | LOC: SJCVC 15:32 | PROVIDERS: ATTEND Internal Medicine | DX: Z51.81 Encounter for therapeutic drug level monitoring (principal); E78.5 Hyperlipidemia, unspecified; I10 Essential (primary) hypertension; E03.9 Hypothyroidism, unspecified; Z79.01 Long term (current) use of anticoagulants; Z79.899 Other long term (current) drug therapy; Z82.49 Family history of ischemic heart disease and other diseases of the circulatory system; Z88.5 Allergy status to narcotic agent; Z88.8 Allergy status to other drugs, medicaments and biological substances ==

== ENCOUNTER → 2021-12-25 | Outpatient (CLI) | payer OTHER, MEDICARE | LOC: RAD 13:45 | PROVIDERS: ATTEND Internal Medicine | DX: S22.000A Wedge compression fracture of unspecified thoracic vertebra, initial encounter for closed fracture (principal); J98.11 Atelectasis; J90 Pleural effusion, not elsewhere classified; I51.7 Cardiomegaly; M51.34 Other intervertebral disc degeneration, thoracic region; X58.XXXA Exposure to other specified factors, initial encounter; Y93.89 Activity, other specified; Y92.89 Other specified places as the place of occurrence of the external cause; Y99.8 Other external cause status ==